=== PATIENT | female | born 1990 | race American Indian/Alaskan Native ===

== ENCOUNTER 2019-12-18 05:44 | Day surgery (SDC) | payer MEDICAID ==
[2019-12-18] MEDS ORDERED: BACTERIOSTATIC SODIUM CHLORIDE 0.9% 30 ML VIAL INFILTRATI ONE (06:20)
[2019-12-18] MEDS ORDERED: LACTATED RINGERS 1,000 ML IV SCH (07:00)
--- NOTE | 2019-12-18 07:11 | Anesthesia Consultation ---
Anesthesia Consult and Med Hx - Airway Anesthetic Teeth Evaluation: Good ROM Head & Neck: Adequate Mental/Hyoid Distance: Adequate Mallampati Class: Class II Intubation Access Assessment: Good - Pulmonary Exam CTA: Yes - Cardiac Exam Cardiac Exam: RRR - Pre-Operative Health Status ASA Pre-Surgery Classification: ASA1 Proposed Anesthetic Plan: General - Central Nervous System Hx Psychiatric Problems: No - Other Systems Hx Cancer: No
--- NOTE | 2019-12-18 07:12 | Anesthesia Day of Surgery ---
Anesthesia Day of Surgery - Day of Surgery Patient Examined: Yes Patient H&P Reviewed: Yes Patient is NPO: Yes
[2019-12-18] MEDS ORDERED: LIDOCAINE MPF (2%) 20 MG/1 ML VIAL 5 ML ONE (07:13)
[2019-12-18] MEDS ORDERED: fentaNYL 100 MCG/2 ML INJ ONE (07:13)
[2019-12-18] MEDS ORDERED: HYDROmorphone 1 MG/1 ML INJ IV PRN (07:14)
[2019-12-18] MEDS ORDERED: propofoL 200 MG/20 ML VIAL IV ONE (07:14)
[2019-12-18] MEDS ORDERED: fentaNYL 100 MCG/2 ML INJ IV PRN (07:14)
[2019-12-18] MEDS ORDERED: ONDANSETRON 4 MG/2 ML INJ IV PRN (07:14)
[2019-12-18] MEDS ORDERED: MIDAZOLAM 2 MG/2 ML INJ ONE (07:14)
[2019-12-18] MEDS ORDERED: ceFAZolin/Water 2 GM/20 ML 2 GM/20 ML SYRINGE IV ONE (07:17)
[2019-12-18] MEDS ORDERED: SILVER NITRATE APPLICATOR 1 EA TP ONE (07:22)
[2019-12-18] MEDS ORDERED: FERRIC SUBSULFATE TOPICAL SOLN 8 ML TP ONE (07:22)
[2019-12-18] MEDS ORDERED: POTASSIUM IODIDE/IODINE (LUGOLS) 30 ML TP ONE (07:23)
[2019-12-18] MEDS ORDERED: ACETIC ACID 3% SOLN 60 ML TP ONE (07:23)
[2019-12-18] MEDS ORDERED: LIDOCAINE 1%/EPINEPHRINE 1:100,000 VIAL (20 ML) INFILTRATI ONE (07:23)
--- NOTE | 2019-12-18 07:23 | Short Stay Summary ---
Short Stay Documentation Date of service: 12/18/19 Narrative H&P: 29-year-old -0-0-1 with findings of severe cervical dysplasia. The patient had a Pap smear that demonstrated high-grade squamous intraepithelial lesion. Colposcopy was performed with positive findings on the endocervical curettage consistent with severe dysplasia. The patient has elected to undergo treatment for her dysplasia. - History Principal diagnosis: Severe cervical dysplasia Past Medical History: No medical history Past Surgical History: No surgical history Social history: single - Allergies and Medications Current Medications: Allergies aspirin Allergy (Verified 12/18/19 06:14) Eyes swell ibuprofen Allergy (Verified 12/18/19 06:14) Eyes swell naproxen Allergy (Verified 12/18/19 06:14) Eyes swell Home Medications Medication Instructions Recorded Confirmed Last Taken Type No Known Home Medications [No 12/16/19 12/16/19 Unknown History Reported Home Medications] Active Medications Fentanyl (Sublimaze) 50 mcg IV Q5MIN PRN PRN Reason: Pain , Severe (7-10) Stop: 12/18/19 20:00 Hydromorphone HCl (Dilaudid) 0.5 mg IV Q10MIN PRN PRN Reason: Pain , Severe (7-10) Lactated Ringer's (Lactated Ringers) 1,000 mls @ 100 mls/hr IV DIRECT MIKE Last Admin: 12/18/19 06:22 Dose: 100 mls/hr Documented by: Ondansetron HCl (Zofran) 4 mg IV ONCE PRN PRN Reason: Nausea And Vomiting - Physical exam General appearance: no acute distress Integumentary: no rash HEENT: Atraumatic Lungs: Clear to auscultation Breasts: deferred Heart: Regular rate Gastrointestinal: normal Female Genitourinary: deferred Rectal Exam: deferred - Brief post op/procedure progress note Date of procedure: 12/18/19 Pre-op diagnosis: Severe cervical dysplasia Post-op diagnosis: same Procedure: Cold knife conization Endocervical curettage Anesthesia: GETA Surgeon: GEORGE BETANCOURT Estimated blood loss: minimal Pathology: list (Cone biopsy of the ectocervix and endocervical curettings) Specimen disposition: to lab Condition: stable - Hospital course Hospital course: The patient was admitted the day of surgery and underwent a CKC. Please see operative note for details of surgery. Postoperative course was uneventful. - Disposition Condition at discharge: Good Disposition: DC-01 TO HOME OR SELFCARE - Discharge Diagnoses (1) REINALDO III (cervical intraepithelial neoplasia grade III) with severe dysplasia Status: Acute Short Stay Discharge Plan Activity: other (Pelvic rest for 4 weeks) Diet: regular Additional Instructions: Schedule follow-up with Dr. Betancourt in 4 weeks Follow up with: SKYE HOOVER MD [Primary Care Provider] - 7 Days Prescriptions: Ibuprofen [Motrin] 800 mg PO Q8HR PRN #60 tablet PRN Reason: Pain, Mild (1-3) HYDROcodone/APAP 5-325 [[place] 5/325] 1 each PO Q6HR PRN #20 tablet PRN Reason: Pain
[2019-12-18] MEDS ORDERED: ceFAZolin/Water 2 GM/20 ML 2 GM/20 ML SYRINGE IV NR (08:00)
[2019-12-18] MEDS ORDERED: LIDOCAINE 1%/EPINEPHRINE 1:100,000 VIAL (20 ML) IJ ONE (08:05)
[2019-12-18] MEDS ORDERED: ACETIC ACID 3% SOLN 60 ML TOPICAL ONE (08:05)
[2019-12-18] MEDS ORDERED: SODIUM CHLORIDE 0.9% IRR 1,500 ML BOTTLE IR ONE (08:05)
[2019-12-18] MEDS ORDERED: ONDANSETRON 4 MG/2 ML INJ ONE (08:30)
--- NOTE | 2019-12-18 08:38 | Operative Report ---
Operative Report Operative Report: Date of procedure: December 18, 2019 Pre-operative diagnosis: Severe cervical dysplasia Post-operative diagnosis: Same as above Procedure name(s): Cold knife conization; endocervical curettage Surgeon: Lise Armenta M.D. Estimated blood loss: 25 mL Anesthesia: LMA Pathology: Endocervical curettings, ectocervical core biopsy Indication: 29-year-old -0-0-1 with a history of cervical dysplasia. The patient had findings of the endocervical canal being positive for dysplasia. Procedure The patient was taken to the operating room and given LMA as anesthesia. The patient was prepped and draped in a normal sterile fashion. The patient was placed in high lithotomy position. A coated metal speculum was placed in the patient's vagina. A single-tooth tenaculum placed on the anterior lip of the cervix. Lidocaine with epinephrine was injected circumferentially into the cervical tissue. A stay suture was placed at 3 and 9:00 on the ectocervix. A core biopsy was performed of the endocervical canal removing the endocervix and the midline ectocervix. An endocervical curettage was then performed. The cervical bed was cauterized. 0 Vicryl suture was used to place a circumferential stitch in the ectocervix. Monsel solution was placed on the incision. All the vaginal instruments were removed. The patient was successfully extubated and taken to the recovery room in stable condition. All sponge laps and needle counts were correct x2.
[2019-12-18] MEDS ORDERED: LACTATED RINGERS 1,000 ML ONE (08:39)
[2019-12-18 09:41] VITALS: BP 109/67
[2019-12-18] MEDS ORDERED: HYDROcodone/ACETAMINOPHEN 5-325 MG TAB PO PRN (11:00)
--- NOTE | 2019-12-18 12:53 | Post Anesthesia Evaluation ---
- Post Anesthesia Evaluation Patient Participated: Yes Airway Patent: Yes Stable Respiratory Function: Yes Nausea/Vomiting: No Temp > 96.8F: Yes Pain Manageable: Yes Adequeate Hydration: Yes Anesthesia Complications: No
== END 2019-12-18 11:03 | disposition home or self-care (01) ==
LOC: OR 05:44
PROVIDERS: ATTEND Obstetrics & Gynecology
DX: D06.7 Carcinoma in situ of other parts of cervix (principal); G43.909 Migraine, unspecified, not intractable, without status migrainosus; Z88.6 Allergy status to analgesic agent; Z91.013 Allergy to seafood; Z88.8 Allergy status to other drugs, medicaments and biological substances; Z79.899 Other long term (current) drug therapy
CPT/HCPCS: 57520; 81025; 88305; 88307; J0690; J2250; J2405; J2704; J3010; J7120

== ENCOUNTER 2021-03-03 16:53 | Outpatient (CLI) | payer OTHER ==
[2021-03-03] MEDS ORDERED: LACTATED RINGERS 1,000 ML IV SCH (17:30)
[2021-03-03 17:53] LABS: Bilirubin,Urine NEG (Negative); Blood,Urine NEG (Negative); Color,Urine Yellow (Yellow); Mucus,Urine 3+ /HPF
[2021-03-03 18:41] VITALS: BP 115/69
== END 2021-03-03 18:39 | disposition home or self-care (01) ==
LOC: TRG 16:53 → APU 16:55 → TRG 18:39
PROVIDERS: ATTEND Obstetrics & Gynecology
DX: O26.892 Other specified pregnancy related conditions, second trimester (principal); R10.9 Unspecified abdominal pain; Z3A.28 28 weeks gestation of pregnancy
CPT/HCPCS: 59025; 81001

== ENCOUNTER 2021-03-11 03:33 | Outpatient (CLI) | payer OTHER ==
[2021-03-11 03:57] VITALS: BP 122/67
[2021-03-11] MEDS ORDERED: LACTATED RINGERS 1,000 ML IV ONE (04:09)
[2021-03-11 04:29] LABS: Bilirubin,Urine NEG (Negative); Blood,Urine NEG (Negative); Color,Urine Yellow (Yellow); Mucus,Urine 1+ /HPF
--- NOTE | 2021-03-11 05:04 | Event Note ---
Date: 03/11/21 Patient presents at 29w4d with suspected vaginal bleeding. Reports spotting with wiping beginning this AM. Denies sexual intercourse, vaginal trauma, itching, irritiation or dysuria. strip: Reactive and reassuring for gesational age Vaginal bleeding in : -sterile speculum exam negative for bleeding. No blood in vault. SVE negative for bleeding, cervix closed. Discharge home in stable condition. Followup outpatient as previously scheduled.
== END 2021-03-11 05:15 | disposition home or self-care (01) ==
LOC: TRG 03:33 → APU 03:41 → TRG 05:15
PROVIDERS: ATTEND Obstetrics & Gynecology
DX: Z34.93 Encounter for supervision of normal pregnancy, unspecified, third trimester (principal); Z3A.29 29 weeks gestation of pregnancy
CPT/HCPCS: 59025; 81001

== ENCOUNTER 2021-05-10 15:58 | Outpatient (CLI) | payer OTHER ==
[2021-05-10 17:16] VITALS: BP 109/80
--- NOTE | 2021-05-10 18:04 | Ultrasound Report ---
ULTRASOUND OBSTETRIC LIMITED ULTRASOUND BIOPHYSICAL PROFILE INDICATION / CLINICAL INFORMATION: well being. Clinical Gestational Age (GA) in weeks, days: 38 weeks 1 day TECHNIQUE: Transabdominal. COMPARISON: None available. FINDINGS: BREATHING MOVEMENT = 2 GROSS BODY MOVEMENT = 2 TONE = 2 QUALITATIVE AMNIOTIC FLUID VOLUME = 2 TOTAL BIOPHYSICAL SCORE = 8/8 HEART RATE (beats per minute): 144 AMNIOTIC FLUID INDEX (cm) = 12 (normal = 7-24 cm) PRESENTATION: Cephalic. ADDITIONAL FINDINGS: None. IMPRESSION: 1. Biophysical Score = 8/8 Signer Name: Dheeraj Angeles DO Signed: 05/10/2021 5:59 PM Workstation Name: [email or web address]
--- NOTE | 2021-05-11 06:55 | Ultrasound Report ---
Please see the report for the biophysical profile ultrasound performed concomitantly. Signer Name: William Hess MD Signed: 05/11/2021 6:50 AM Workstation Name: [id number]
== END 2021-05-10 18:02 | disposition home or self-care (01) ==
LOC: TRG 15:58 → APU 16:03 → TRG 18:02
PROVIDERS: ATTEND Obstetrics & Gynecology
DX: O36.8130 Decreased fetal movements, third trimester, not applicable or unspecified (principal); Z3A.38 38 weeks gestation of pregnancy
CPT/HCPCS: 59025; 76815; 76819

== ENCOUNTER 2021-05-21 04:47 | Inpatient (IN) | payer OTHER ==
[2021-05-21] MEDS ORDERED: AMPICILLIN/NS 2 GM/100 ML 2 GM/100 ML BAG IV ONE ×2 (04:56→05:25)
[2021-05-21] MEDS ORDERED: LACTATED RINGERS 1,000 ML ONE (04:56)
[2021-05-21] MEDS ORDERED: ePHEDrine SULFATE 50 MG/1 ML INJ IV PRN (05:19)
[2021-05-21] MEDS ORDERED: METHYLERGONOVINE MALEATE 0.2 MG/ML VIAL IM PRN (05:19)
[2021-05-21] MEDS ORDERED: MINERAL OIL 30 ML ORAL LIQD PO PRN (05:19)
[2021-05-21] MEDS ORDERED: LOPERAMIDE 2 MG CAP PO PRN (05:19)
[2021-05-21] MEDS ORDERED: miSOPROStol 200 MCG TAB PR PRN (05:19)
[2021-05-21] MEDS ORDERED: TERBUTALINE 1 MG/1 ML INJ SUB-Q PRN ×2 (05:19→05:45)
[2021-05-21] MEDS ORDERED: CARBOPROST TROMETHAMINE 250 MCG/1 ML INJ IM PRN (05:19)
[2021-05-21] MEDS ORDERED: LIDOCAINE (2%) 20 MG/1 ML VIAL 20 ML MDV INFILTRATI ONE ×2 (05:19→05:45)
[2021-05-21] MEDS ORDERED: OXYTOCIN 10 UNIT/1 ML INJ IM PRN (05:19)
[2021-05-21] MEDS ORDERED: fentaNYL 100 MCG/2 ML INJ ONE (05:26)
[2021-05-21] MEDS ORDERED: LACTATED RINGERS 1,000 ML IV SCH ×2 (05:30→05:45)
[2021-05-21] MEDS ORDERED: OXYTOCIN DRIP 30,000 MILLIUNITS/500 ML BAG IV ONE (05:34)
[2021-05-21] MEDS ORDERED: ONDANSETRON 4 MG/2 ML INJ IV PRN (05:45)
[2021-05-21] MEDS ORDERED: BUTORPHANOL 2 MG/1 ML INJ IV PRN (05:45)
[2021-05-21] MEDS ORDERED: fentaNYL 100 MCG/2 ML INJ IV PRN (05:45)
[2021-05-21] MEDS ORDERED: NalbUPHINE 10 MG/1 ML INJ IV PRN (05:45)
[2021-05-21] MEDS ORDERED: ACETAMINOPHEN 325 MG TAB PO PRN (05:45)
--- NOTE | 2021-05-21 05:54 | History and Physical Report ---
History of Present Illness Date of examination: 05/21/21 Date of admission: 05/21/2021 Chief complaint: Frequent painful ctxs History of present illness: 30 yo, @ 39.5 wks, initiated care with [facility] at 10.1 wks gestation. has been complicated by constipation, HSV2, h/o cold knife conization (MFM co-managed) and synocopal episodes prior to emesis x 10 yrs (neuro and cardiology referral initiated). She presents to [facility] with reports of frequent painful ctxs. Reports +FM. Denies VB or LOF. Labs: O+, antibody negative; rubella immune; VDRL negative; urine culture negative; HBsAg negative; HIV negative; Hep C negative; GC/Chlamydia negative; Panorama low-risk; 1 hr [id number]-136; GBS positive. 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 denies: smoking, alcohol abuse, prescription drug abuse, IV drug use - Obstetrical History Expected Date of Delivery: 05/23/21 Actual Gestation: 39 Week(s) 5 Day(s) : 2 Para: 1 Hx # Term Pregnancies: 1 Number of Pregnancies: 0 Spontaneous Abortions: 0 Induced : 0 Number of Living Children: 1 #1 Infant Gender: Male year: Birthweight: 3.09 kg Method of Delivery: Vaginal Gestational age at delivery: 40 Complications: none Medications and Allergies Allergies Allergy/AdvReac Type Severity Reaction Status Date / Time aspirin Allergy Eyes swell Verified 03/03/21 17:51 ibuprofen Allergy Eyes swell Verified 03/03/21 17:51 naproxen Allergy Eyes swell Verified 03/03/21 17:51 shellfish derived Allergy eyes swell Verified 03/03/21 17:51 Home Medications Medication Instructions Recorded Confirmed Last Taken Type Promethazine 25 mg PO PRN PRN 03/03/21 03/03/21 Unknown History Active Meds: Active Medications Acetaminophen (Acetaminophen 325 Mg Tab) 650 mg PO Q4H PRN PRN Reason: Pain, Mild (1-3) Butorphanol Tartrate (Butorphanol 2 Mg/1 Ml Inj) 2 mg IV Q2H PRN PRN Reason: Pain , Severe (7-10) Carboprost Tromethamine (Carboprost Tromethamine 250 Mcg/1 Ml Inj) 250 mcg IM ONCE PRN PRN Reason: Uterine Bleeding Ephedrine Sulfate (Ephedrine Sulfate 50 Mg/1 Ml Inj) 10 mg IV Q2M PRN PRN Reason: Hypotension Fentanyl (Fentanyl 100 Mcg/2 Ml Inj) 100 mcg IV Q2H PRN PRN Reason: Pain,Severe (7-10) LABOR PAIN Lactated Ringer's (Lactated Ringers) 1,000 mls @ 125 mls/hr IV DIRECT MIKE Lactated Ringer's (Lactated Ringers) 1,000 mls @ 125 mls/hr IV DIRECT MIKE Oxytocin/Sodium Chloride (Pitocin/Ns 30 Unit/500ml) 30 units in 500 mls @ 40 mls/hr IV TITR MIKE; Protocol Lidocaine (Lidocaine (2%) 20 Mg/1 Ml Vial 20 Ml Mdv) 20 ml INFILTRATI ONCE ONE Stop: 05/21/21 05:46 Loperamide HCl (Loperamide 2 Mg Cap) 2 mg PO ONCE PRN PRN Reason: give with Hemabate Methylergonovine Maleate (Methylergonovine Maleate 0.2 Mg/Ml Vial) 0.2 mg IM ONCE PRN PRN Reason: Uterine Bleeding Mineral Oil (Mineral Oil 30 Ml Oral Liqd) 30 ml PO QHS PRN PRN Reason: Constipation Misoprostol (Misoprostol 200 Mcg Tab) 800 mcg NV ONCE PRN PRN Reason: Uterine Bleeding Nalbuphine HCl (Nalbuphine 10 Mg/1 Ml Inj) 10 mg IV Q2H PRN PRN Reason: Pain, Moderate (4-6) Ondansetron HCl (Ondansetron 4 Mg/2 Ml Inj) 4 mg IV Q8H PRN PRN Reason: Nausea And Vomiting Oxytocin (Oxytocin 10 Unit/1 Ml Inj) 10 unit IM ONCE PRN PRN Reason: Uterine Bleeding Terbutaline Sulfate (Terbutaline 1 Mg/1 Ml Inj) 0.25 mg SUB-Q ONCE PRN PRN Reason: Hyperstimulation/Hypertonicity Terbutaline Sulfate (Terbutaline 1 Mg/1 Ml Inj) 0.25 mg SUB-Q ONCE PRN PRN Reason: Hyperstimulation/Hypertonicity Review of Systems All systems: negative Genitourinary: contractions - Vital Signs Vital signs: Vital Signs Pulse Ox 98 05/21/21 05:07 Temp Pulse Resp BP Pulse Ox 98.4 F 104 H 19 134/87 96 05/21/21 05:20 05/21/21 05:48 05/21/21 05:20 05/21/21 05:16 05/21/21 05:48 - Physical Exam Breasts: Positive: normal Cardiovascular: Regular rate Lungs: Positive: Normal air movement Abdomen: Positive: other (gravid) Genitourinary (Female): Positive: normal external genitalia, normal perenium Vagina: Positive: other (dark brown d/c noted) Uterus: Positive: enlarged (S=D) Extremities: Positive: edema Deep Tendon Reflex Grade: Normal +2 - Obstetrical FHR: category 1 Uterine Contraction Monitor Mode: External Cervical Dilatation: 9 Cervical Effacement Percentage: 90 station: 0 to -1 Uterine Contraction Frequency (min): 3-4 Uterine Contraction Pattern: Irregular Uterine Tone Measurement Phase: Resting Uterine Contraction Intensity: Moderate Results Result Diagrams: 05/21/21 05:02 All other labs normal. Assessment and Plan - Patient Problems (1) Active labor at term Current Visit: Yes Status: Acute Plan to address problem: Admit to L&D Pain meds as desired Anticipate (2) Positive GBS test Current Visit: Yes Status: Acute Plan to address problem: Initiate GBS prophylaxis (3) HSV-2 seropositive Current Visit: Yes Status: Acute
[2021-05-21] MEDS ORDERED: OXYTOCIN DRIP 30 UNITS/500 ML BAG IV SCH (06:00)
[2021-05-21 06:05] LABS: Hematocrit 31.2 % (30.3-42.9); Hemoglobin 10.7 gm/dl (10.1-14.3); Mean Corpuscular HGB Conc 34 % (30-34); Mean Corpuscular Volume 87 fl (79-97); Platelet Count 276 K/mm3 (140-440); Red Cell Distribution Width 14.1 % (13.2-15.2)
[2021-05-21] MEDS ORDERED: oxyCODONE /ACETAMINOPHEN 5-325MG TAB ONE (07:20)
--- NOTE | 2021-05-21 07:29 | Procedure Note ---
OB Delivery Note - Delivery Date of Delivery: 05/21/21 (0653) Surgeon: CHASE MIRANDA (RUBY) Estimated blood loss: 200cc - Vaginal Delivery presentation: vertex (PETER) Delivery position: OA Intrapartum events: none Delivery induction: none Delivery augmentation: rupture of membranes (0645) Delivery monitor: external FHT, external uterine Route of delivery: Delivery placenta: spontaneous (0659, inge) Delivery cord: 3 umbilical vessels Episiotomy: none Delivery laceration: other (right inner labial laceration, no repair required) Anesthesia: intravenous Delivery comments: of viable, crying female infant, placed directly to maternal abdomen. Cord double clamped, cut by FOB after cessation of pulsation. Cord blood collected, sent to lab. Placenta spontaneously delivered, inge, disposed per hospital policy. Uterus firm @ U-2. Perineum intact. Mother and baby safe, stable and left in care of RN. - Infant A at 1 minute: 9 at 5 minutes: 9 Gender: Female (Weight: 3160 gms (6lbs 15ozs) 20.5 inches)
[2021-05-21] MEDS ORDERED: diphenhydrAMINE 25 MG CAP PO PRN (08:00)
[2021-05-21] MEDS ORDERED: WITCH HAZEL/ GLYCERIN PAD TP PRN (08:00)
[2021-05-21] MEDS ORDERED: PROMETHAZINE 25 MG TAB PO PRN (08:00)
[2021-05-21] MEDS ORDERED: LANOLIN/ZINC/DIMETHICONE (LANSINOH) 7 GM TP PRN (08:00)
[2021-05-21] MEDS: oxyCODONE /ACETAMINOPHEN 5-325MG TAB PO PRN ×2 (15:43→21:29)
[2021-05-21 18:23] LABS: Hematocrit 31.3 % (30.3-42.9); Hemoglobin 10.3 gm/dl (10.1-14.3)
[2021-05-21] MEDS ORDERED: MAGNESIUM HYDROXIDE (MOM) ORAL LIQD UDC PO PRN (22:00)
[2021-05-22] MEDS: oxyCODONE /ACETAMINOPHEN 5-325MG TAB PO PRN ×2 (03:50→10:11)
[2021-05-22] MEDS: ACETAMINOPHEN 325 MG TAB PO PRN ×2 (16:11→22:34)
--- NOTE | 2021-05-22 16:27 | Progress Note ---
Assessment and Plan PPD 1 s/p . Doing well. Plan for discharge on tomorrow. Infant has to stay for 48 hours. Subjective - Subjective Date of service: 05/22/21 Patient reports: appetite normal, voiding normally, pain well controlled, ambulating normally : doing well Objective - Vital Signs Latest vital signs: Vital Signs Temp Pulse Resp BP Pulse Ox Pulse Ox 05/22/21 07:48 97 05/22/21 07:27 97.6 F 89 16 131/87 99 05/22/21 03:50 18 05/22/21 00:46 97.9 F 102 H 20 125/87 96 05/21/21 21:29 18 05/21/21 20:00 97 Intake and Output 05/22/21 05/22/21 05/22/21 06:59 14:59 22:59 Intake Total 720 520 Balance 720 520 Intake: Oral 720 520 Other: Total, Intake Amount 240 200 # Voids Void 1 1 - Exam Breasts: Present: deferred Cardiovascular: Present: Regular rate, Normal S1, Normal S2 Lungs: Present: Clear to auscultation, Normal air movement Abdomen: Present: normal appearance, soft Uterus: Present: normal, firm Extremities: Present: normal
--- NOTE | 2021-05-22 16:32 | Discharge Summary ---
Providers - Providers Date of Admission: 05/21/21 05:45 Date of discharge: 05/22/21 Attending physician: GEORGE BETANCOURT 05/21/21 07:22 Consult to Pharmaceutical Operator [CONS] Routine Reason For Exam: assistance with , SNS Primary care physician: GEORGE BETANCOURT Hospitalization Reason for admission: active labor Delivery: Episiotomy: none Laceration: none Other procedures: none Discharge diagnosis: IUP at term delivered [place] baby: female Hospital course: unremarkble Condition at discharge: Good Disposition: DC-01 TO HOME OR SELFCARE Plan - Discharge Medications Prescriptions: Ibuprofen [Motrin] 800 mg PO Q8HR PRN #40 tablet PRN Reason: Pain, Mild (1-3) - Provider Discharge Summary Activity: routine, no sex for 6 weeks, no heavy lifting 4 weeks, no strenuous exercise Diet: routine Instructions: routine Additional instructions: [] Smoking cessation referral if applicable(refer to patient education folder for contact #) [] Refer to [facility]'s [facility] Booklet Call your doctor immediately for: * Fever > 100.5 * Heavy vaginal bleeding ( >1 pad per hour) * Severe persistent headache * Shortness of breath * Reddened, hot, painful area to leg or breast * Drainage or odor from incision. * Keep incision clean and dry at all times and follow doctor's instructions regarding bathing/showering - Follow up plan Follow up: GEORGE BETANCOURT MD [Primary Care Provider] - 6 Weeks
[2021-05-23] MEDS: ACETAMINOPHEN 325 MG TAB PO PRN (08:35)
[2021-05-23 16:36] VITALS: BP 145/96
== END 2021-05-23 16:35 | disposition home or self-care (01) | DRG 774 ==
LOC: TRG 04:47 → LD 04:58 → TRG 05:45 → LD 05:45 → OB 08:24
PROVIDERS: ADMIT Obstetrics & Gynecology; ATTEND Obstetrics & Gynecology
PROC: 10E0XZZ Delivery of Products of Conception, External Approach (ICD-10-PCS; principal; 2021-05-21)
DX: O99.824 Streptococcus B carrier state complicating childbirth (principal); O98.52 Other viral diseases complicating childbirth; Z3A.39 39 weeks gestation of pregnancy; Z37.0 Single live birth; Z20.822 Contact with and (suspected) exposure to COVID-19; Z88.6 Allergy status to analgesic agent; Z91.013 Allergy to seafood; B00.9 Herpesviral infection, unspecified; O70.0 First degree perineal laceration during delivery
CPT/HCPCS: 36415; 59025; 85014; 85018; 85027; 86592; 96360; 96361; G0378; J0290; J2590; J3010; J7120; U0003